=== PATIENT | male | born 1930 | race Caucasian/White ===

== ENCOUNTER 2017-08-23 09:06 | Emergency (ER) | payer OTHER ==
[~2017-08-23] VITALS: Ht 175.3 cm; Wt 65.8 kg
--- NOTE | 2017-08-23 11:24 | ED GENERAL ADULT ---
History of Present Illness General Chief Complaint: General Adult Stated Complaint: GROIN PAIN X 3 DAYS Source: patient, family Exam Limitations: no limitations Vital Signs & Intake/Output Vital Signs & Intake/Output Vital Signs Date Time Temp Pulse Resp B/P B/P Pulse O2 O2 Flow FiO2 Mean Ox Delivery Rate 08/23 1529 97.2 66 14 130/70 97 Room Air 08/23 1243 60 18 132/68 99 Room Air 08/23 1235 Room Air 08/23 0915 95.9 58 18 126/63 98 Room Air Room Air Allergies Coded Allergies: codeine (Intermediate, RASH/FLUSHED 08/23/17) Triage Note: PT TO ED WITH C/O RIGHT GROIN PAIN X 3 DAYS "IT'S LIKE A MUSCULAR SPASM, FIRST STARTED IN THE ARM, THAT WENT AWAY, BUT THE GROIN PAIN IS STILL THERE". PT DENIES FALL OR INJURY TO THE AREA. Triage Nurses Notes Reviewed? yes Onset: Gradual Duration: day(s): (3-4) Timing: no prior history Injury Environment: home Severity: mild, moderate Severity Numbers: 5 Modifying Factors: Improves With: immobilization. Worsens With: movement. HPI: Patient is an 87-year-old male presenting to the emergency department with chief of right thigh and right groin pain as well as left shoulder pain has been going on for the past 3-4 days. Denies any new injury but reports that he missed one step about 1 month ago and fell floored and since then he's had the shoulder pain but the cramping pain is new. Patient denying any dysuria urgency or frequency. No hematuria. Patient reports that he also has really bad spinal stenosis and has been having right lower back pain. Patient denies history quit the fall. No LOC. Denies neck pain. Patient has been taking regular strength Tylenol [id number] for the past 3 days without relief. Denies abdominal pain. No change in bowel or bladder habits. Denies any heavy lifting. No history of similar injury in the past. Denies any scrotalor testicular pain. (Katie ELAINE,Tory) Reconcile Medications Tramadol HCl 50 MG TABLET 1 TAB PO BIDP PRN SEVERE PAIN (Jason CHU,Saúl) Past History Travel History Traveled to [place] past 21 day No Medical History Any Pertinent Medical History? see below for history Neurological: NONE EENT: cataracts Cardiovascular: hypertension, hyperlipidemia, STENT 2008 Respiratory: NONE Gastrointestinal: diverticulitis Hepatic: NONE Renal: NONE Musculoskeletal: osteoarthritis Psychiatric: NONE Endocrine: NONE Blood Disorders: NONE Cancer(s): NONE PHARMACEUTICAL SALES SPECIALIST/Reproductive: NONE Surgical History Surgical History: non-contributory Psychosocial History What is your primary language Latvian Tobacco Use: Quit >30 days ago ETOH Use: occasional use Illicit Drug Use: denies illicit drug use Family History Hx Contributory? No (Tory Mejias) Review of Systems Review of Systems Constitutional: Reports: no symptoms. Comments Review of systems: See HPI, All other systems negative. Constitutional, no chills fever or weight loss HEENT: No visual changes no sore throat no congestion Cardiovascular: No chest pain ,palpitation , orthopnea or ankle swelling Skin, no jaundice no rashes Respiratory: No dyspnea cough sputum or hemoptysis GI: No nausea no vomiting : No dysuria No hematuria, no frequency or urgency Muscle skeletal: no neck pain, Neurologic: No numbness no confusion and no headaches Psych: No stress anxiety or depression,. Heme/endocrine: No bruising no bleeding no polyuria or polydipsia Immunology: No splenectomy or history of AIDS (Tory Mejias) Physical Exam Physical Exam General Appearance: well developed/nourished, no apparent distress, alert, awake , comfortable Comments: Well-developed well-nourished person in no acute distress HEENT: Atraumatic, normocephalic Neck: Supple, no C-spine tenderness, full range of motion. Back: Tenderness to palpation in the lumbar spinal muscles on the right side only. Spine noted to be kyphotic. No step-off deformities palpated over entire spine. Negative straight leg raise bilaterally. Cardiovascular: Regular rate and rhythms Respiratory: Chest nontender. No respiratory distress.breath sounds clear to auscultation bilaterally Abdomen: Soft, nontender nondistended, no appreciable organomegaly. Normal bowel sounds. No ascites, no rebound or guarding. Extremity: No edema, no calf tenderness to palpation, normal and equal pulses. Tender to palpation over the right thigh muscle, also elicited pain with right hip flexion, less pain with right hip adduction, mild pain with right hip abduction. Tender to palpation over the right groin area. Limited range of motion of left shoulder secondary to pain. Mild pain to palpation over the left acromioclavicular joint. No obvious deformities noted. Neuro: Alert oriented x3, motor sensory normal Skin: No appreciable rash on exposed skin, skin is warm and dry. Psych: Mood and affect is normal, memory and judgment is normal. Core Measures ACS in differential dx? No CVA/TIA Diagnosis: No Sepsis Present: No Sepsis Focused Exam Completed? No (Katie ELAINE,Tory) Progress Differential Diagnoses I considered the following diagnoses in my evaluation of the patient: Hip fracture, pelvis fracture, muscle strain, radicular pain, sciatica, shoulder fracture, shoulder dislocation, tendinitis Plan of Care: Orders Procedure Date/time Status URINALYSIS 08/23 1137 Complete Laboratory Tests 08/23/17 1330: Urine Color YEL, Urine Clarity CLEAR, Urine pH 7.0, Ur Specific [place] 1.015, Urine Protein NEG, Urine Ketones NEG, Urine Nitrite NEG, Urine Bilirubin NEG, Urine Urobilinogen 0.2, Ur Leukocyte Esterase NEG, Ur Microscopic SEDIMENT EXAMINED, Urine RBC 1-3, Urine Hemoglobin TRACE-INTACT H, Urine Glucose NEG 08/23/2017 11:37:02 AM patient declined pain medication on arrival. Patient will go for imaging. Pain elicited with movement and ambulation. Likely muscular or nerve related. 08/23/2017 3:16:08 PM patient has a right-sided superior rami pelvic fracture. Patient does well with rolling walker. Patient will have home physical therapy set up for him. Sent home with pain medication. Also will follow-up with orthopedics. Patient is nontoxic and compliant. d/w dr armas and he agrees with plan. family feels comfortable with pt being home. pt has his and son at home to help as needed. Diagnostic Imaging: Viewed by Me: CT Scan. Discussed w/RAD: CT Scan. Radiology Impression: PATIENT: ALISON STANTON JR PRESENT AGE: 87 PATIENT ACCOUNT NO: [id number] : [birth year] LOCATION: [facility] ORDERING PHYSICIAN: Tory ELAINE SERVICE DATE: 08/23/17-1122 EXAM TYPE: CAT - CT PELVIS WO IV CONTRAST EXAMINATION: CT PELVIS WITHOUT CONTRAST CLINICAL INFORMATION: Pain status post fall on right hip area. Rule out fracture. COMPARISON: CT scan of the lumbar spine dated 08/23/2017. TECHNIQUE: Helical scanning was performed with submillimeter collimation through the pelvis. Sagittal and coronal multiplanar 2-D reconstructions were obtained. DLP: 374.01 mGy-cm FINDINGS: PELVIS: Dense atherosclerotic calcification of the abdominal aorta is seen, which is normal in caliber, measuring 2.4 cm in maximal AP diameter. No significant pelvic adenopathy or free fluid collection is seen. Prostate gland is very heterogeneous and enlarged with coarse internal calcifications seen. Seminal vesicles bilaterally are also enlarged. Prostate gland impresses upon the bladder base. The bladder itself appears unremarkable. Included small and large bowel loops are decompressed and unremarkable only for moderate sigmoid colonic diverticulosis with no evidence of acute diverticulitis. No free fluid is seen. OSSEOUS STRUCTURES: Evaluation of the bones is difficult due to marked osteopenia, producing unremarkable lucency throughout the bony structures. There is a nondisplaced hairline fracture of the right superior pubic ramus near the pubic symphysis. The pubic symphysis remains intact. No other definite acute fracture is seen. Both hip joints are normally located within the acetabula and demonstrate mild degenerative change with joint space narrowing, mild spurring and cystic changes noted. Enthesopathic ossification along the greater trochanters and the iliac spines is seen. The sacroiliac joints bilaterally are intact. The bony sacrum appears intact. Advanced degenerative changes as seen in the lower lumbar spine. IMPRESSION: 1. Marked osteopenia, limiting assessment. Nondisplaced hairline right superior pubic ramus fracture is seen near the pubic symphysis. 2. No other acute fracture appreciated. 3. Mild degenerative changes in both hip joints and scattered enthesopathic changes noted in the hips and pelvis. 4. Moderate colonic diverticulosis. 5. Enlarged and heterogeneous prostate gland and seminal vesicles. 6. Dense atherosclerotic vascular disease. DICTATED BY: Amanda Hairston MD DATE/TIME DICTATED:08/23/171318 PREMIUM NOTE INTEREST CALCULATOR CLERK:FLORES DATE/ TIME TRANSCRIBED:08/23/171318 CONFIDENTIAL, DO NOT COPY WITHOUT APPROPRIATE AUTHORIZATION. <Electronically signed in Other Vendor System> SIGNED BY: Amanda Hairston MD 08/23/17 1333, PATIENT: ALISON STANTON JR PRESENT AGE: 87 PATIENT ACCOUNT NO: [id number] : [birth year] LOCATION: [facility] ORDERING PHYSICIAN: Tory ELAINE SERVICE DATE: 08/23/176 EXAM TYPE: CAT - CT LUMB SPINE WO IV CONTRAST EXAMINATION: CT LUMBAR SPINE WITHOUT CONTRAST CLINICAL INFORMATION: Pain status post fall. Assess for compression fracture. COMPARISON: MRI lumbar spine 03/04/2011. TECHNIQUE: Helical non- contrast CT images were obtained through the lumbar spine and 1.25 and 2.5 mm axial reconstructions were reviewed along with sagittal and coronal MPRs. DLP: 282.26 mGy-cm FINDINGS: There has been interval worsening of the levoscoliosis. There is a transitional vertebra at the lumbosacral junction with partial sacralization of L5 on the left. A pseudoarticulation is seen on the left at this level. The study redemonstrates the mild retrolisthesis of L1 on L2 and anterolisthesis of L3 on L4. There is marked narrowing of intervertebral disc height in the concavity of the scoliosis on the right at L3-L4 and there are sclerotic endplate changes with vacuum disc. Narrowing of intervertebral disc height is also demonstrated at multiple other levels. Vacuum discs are seen throughout the lumbar spine, sparing L5-S1. There are no acute compression fractures. Bone mineralization is diffusely decreased. The abdominal aorta is heavily calcified and is ectatic, extending into the bilateral iliac arteries. There are degenerative changes at the sacroiliac joints. There is sigmoid diverticulosis without evidence of active diverticulitis. SPINAL LEVELS: T12-L1: There is mild bilateral facet arthropathy. There is a right-sided disc protrusion extending into the right neural foramen. There is no definite nerve root impingement and there is no central stenosis. L1-L2: There is mild bilateral facet arthropathy with ligamenta flava hypertrophy. There is a diffuse disc bulge, distorting the ventral thecal sac. There is mild central stenosis. The neural foramina are patent. L2-L3: There is moderate bilateral facet arthropathy and ligamenta flava hypertrophy. There is a posterior disc protrusion extending into the neural foramina bilaterally without definite impingement on the exiting L2 nerve roots. There is mild to moderate central stenosis. L3-L4: There is severe right and moderate to severe left facet arthropathy with ligamenta flava hypertrophy. There is a posterior disc osteophyte complex extending into the right greater than left neural foramina, and there may be impingement on the exiting right L3 nerve root. There is moderate central stenosis. L4-L5: There is moderate to severe bilateral facet arthropathy and ligamenta flava hypertrophy. There is a broad-based posterior disc protrusion extending into the neural foramina bilaterally. There is narrowing of the subarticular recesses bilaterally and there is moderate to severe central stenosis. L5-S1: There is bilateral facet arthropathy. There is a right disc osteophyte complex narrowing the right neural foramen and there may be impingement on the exiting L5 nerve root. There is mild central stenosis, there is narrowing of the bilateral subarticular recesses. IMPRESSION: 1. There are no acute fractures or subluxations. 2. There is a levoscoliosis, there is an anterolisthesis of L3 on L4 and there is partial sacralization of L5 in the left. 3. There is multilevel spondylosis as described above, which appears most severe at L3-L4 and L4-L5. DICTATED BY: Andre Campbell MD DATE/TIME DICTATED:08/23 PREMIUM NOTE INTEREST CALCULATOR CLERK:FLORES DATE/TIME TRANSCRIBED:08/23/171237 CONFIDENTIAL, DO NOT COPY WITHOUT APPROPRIATE AUTHORIZATION. <Electronically signed in Other Vendor System> SIGNED BY: Andre Campbell MD 08/23/17 1257, PATIENT: ALISON STANTON JR PRESENT AGE: 87 PATIENT ACCOUNT NO: [id number] : [birth year] LOCATION: [facility] ORDERING PHYSICIAN: Toyr ELAINE SERVICE DATE: 08/23/17 EXAM TYPE: RAD - XRY-SHOULDER COMPLETE-LEFT EXAMINATION: XR SHOULDER, LEFT CLINICAL INFORMATION: Trauma. Pain. COMPARISON: None TECHNIQUE: 5 views of the left shoulder. FINDINGS: The bones and soft tissues are normal. No fracture. Glenohumeral and acromioclavicular alignment is anatomic with normal joint space. There is chondrocalcinosis of the left AC joint. 2 tiny ossified bodies are noted in the inferior to the glenoid process and probably reside within the axillary bursa. IMPRESSION: 1. No fracture or dislocation. 2. Chondrocalcinosis of the left AC joint. 3. Question tiny loose bodies in the axillary bursa. DICTATED BY: Robert Schwartz MD DATE/ TIME DICTATED:08/23/171244 PREMIUM NOTE INTEREST CALCULATOR CLERK:RAD.ANTON DATE/TIME TRANSCRIBED: 08/23/17 / 1245 CONFIDENTIAL, DO NOT COPY WITHOUT APPROPRIATE AUTHORIZATION. < Electronically signed in Other Vendor System> SIGNED BY: Robert Schwartz MD 08/23/17 1258 Initial ED EKG: none (Tory Mejias) Departure Departure Time of Disposition: 1507 Disposition: HOME OR SELF CARE Condition: Stable Clinical Impression Primary Impression: Pelvic fracture Qualifiers: Encounter type: initial encounter Pelvic bone location: other part of pelvis Fracture type: closed Qualified Code: S32.89XA - Fracture of other parts of pelvis, initial encounter for closed fracture Referrals: Christoph CHU,Nicko García MD,Beto Peñaloza (PCP/Family) Additional Instructions: Follow-up with orthopedics, call to make an appointment. Ice affected area. Elevate extremities. For severe pain take Ultram. For [id number] pain use regular strength Tylenol [id number] as directed. Physical therapy will be set up for you. Someone will be out to evaluate you. Use the walker as directed. No driving for at least 3 weeks to help with healing and pain control. Departure Forms: Customer Survey General Discharge Information Prescriptions: Current Visit Scripts Tramadol HCl 1 TAB PO BIDP PRN SEVERE PAIN #10 TAB (Tory Mejias) PA/SURGICAL SUPPLIES STERILIZER Co-Sign Statement Statement: ED Attending supervision documentation- x I saw and evaluated the patient. I have also reviewed all the pertinent lab results and diagnostic results. I agree with the findings and the plan of care as documented in the PA's/SURGICAL SUPPLIES STERILIZER's documentation. [] I have reviewed the ED Record and agree with the PA's/SURGICAL SUPPLIES STERILIZER's documentation. [] Additions or exceptions (if any) to the PAs/SURGICAL SUPPLIES STERILIZER's note and plan are summarized below: [] (Jason CHU,Saúl) Critical Care Note Critical Care Note Critical Care Time: non-applicable (Tory Mejias)
--- NOTE | 2017-08-23 12:52 | RADIOLOGY REPORT ---
EXAMINATION: XR SHOULDER, LEFT CLINICAL INFORMATION: Trauma. Pain. COMPARISON: None TECHNIQUE: 5 views of the left shoulder. FINDINGS: The bones and soft tissues are normal. No fracture. Glenohumeral and acromioclavicular alignment is anatomic with normal joint space. There is chondrocalcinosis of the left AC joint. 2 tiny ossified bodies are noted in the inferior to the glenoid process and probably reside within the axillary bursa. IMPRESSION: 1. No fracture or dislocation. 2. Chondrocalcinosis of the left AC joint. 3. Question tiny loose bodies in the axillary bursa.
--- NOTE | 2017-08-23 12:57 | CT SCAN REPORT ---
EXAMINATION: CT LUMBAR SPINE WITHOUT CONTRAST CLINICAL INFORMATION: Pain status post fall. Assess for compression fracture. COMPARISON: MRI lumbar spine 03/04/2011. TECHNIQUE: Helical non-contrast CT images were obtained through the lumbar spine and 1.25 and 2.5 mm axial reconstructions were reviewed along with sagittal and coronal MPRs. DLP: 282.26 mGy-cm FINDINGS: There has been interval worsening of the levoscoliosis. There is a transitional vertebra at the lumbosacral junction with partial sacralization of L5 on the left. A pseudoarticulation is seen on the left at this level. The study redemonstrates the mild retrolisthesis of L1 on L2 and anterolisthesis of L3 on L4. There is marked narrowing of intervertebral disc height in the concavity of the scoliosis on the right at L3-L4 and there are sclerotic endplate changes with vacuum disc. Narrowing of intervertebral disc height is also demonstrated at multiple other levels. Vacuum discs are seen throughout the lumbar spine, sparing L5-S1. There are no acute compression fractures. Bone mineralization is diffusely decreased. The abdominal aorta is heavily calcified and is ectatic, extending into the bilateral iliac arteries. There are degenerative changes at the sacroiliac joints. There is sigmoid diverticulosis without evidence of active diverticulitis. SPINAL LEVELS: T12-L1: There is mild bilateral facet arthropathy. There is a right-sided disc protrusion extending into the right neural foramen. There is no definite nerve root impingement and there is no central stenosis. L1-L2: There is mild bilateral facet arthropathy with ligamenta flava hypertrophy. There is a diffuse disc bulge, distorting the ventral thecal sac. There is mild central stenosis. The neural foramina are patent. L2-L3: There is moderate bilateral facet arthropathy and ligamenta flava hypertrophy. There is a posterior disc protrusion extending into the neural foramina bilaterally without definite impingement on the exiting L2 nerve roots. There is mild to moderate central stenosis. L3-L4: There is severe right and moderate to severe left facet arthropathy with ligamenta flava hypertrophy. There is a posterior disc osteophyte complex extending into the right greater than left neural foramina, and there may be impingement on the exiting right L3 nerve root. There is moderate central stenosis. L4-L5: There is moderate to severe bilateral facet arthropathy and ligamenta flava hypertrophy. There is a broad-based posterior disc protrusion extending into the neural foramina bilaterally. There is narrowing of the subarticular recesses bilaterally and there is moderate to severe central stenosis. L5-S1: There is bilateral facet arthropathy. There is a right disc osteophyte complex narrowing the right neural foramen and there may be impingement on the exiting L5 nerve root. There is mild central stenosis, there is narrowing of the bilateral subarticular recesses. IMPRESSION: 1. There are no acute fractures or subluxations. 2. There is a levoscoliosis, there is an anterolisthesis of L3 on L4 and there is partial sacralization of L5 in the left. 3. There is multilevel spondylosis as described above, which appears most severe at L3-L4 and L4-L5.
--- NOTE | 2017-08-23 13:33 | CT SCAN REPORT ---
EXAMINATION: CT PELVIS WITHOUT CONTRAST CLINICAL INFORMATION: Pain status post fall on right hip area. Rule out fracture. COMPARISON: CT scan of the lumbar spine dated 08/23/2017. TECHNIQUE: Helical scanning was performed with submillimeter collimation through the pelvis. Sagittal and coronal multiplanar 2-D reconstructions were obtained. DLP: 374.01 mGy-cm FINDINGS: PELVIS: Dense atherosclerotic calcification of the abdominal aorta is seen, which is normal in caliber, measuring 2.4 cm in maximal AP diameter. No significant pelvic adenopathy or free fluid collection is seen. Prostate gland is very heterogeneous and enlarged with coarse internal calcifications seen. Seminal vesicles bilaterally are also enlarged. Prostate gland impresses upon the bladder base. The bladder itself appears unremarkable. Included small and large bowel loops are decompressed and unremarkable only for moderate sigmoid colonic diverticulosis with no evidence of acute diverticulitis. No free fluid is seen. OSSEOUS STRUCTURES: Evaluation of the bones is difficult due to marked osteopenia, producing unremarkable lucency throughout the bony structures. There is a nondisplaced hairline fracture of the right superior pubic ramus near the pubic symphysis. The pubic symphysis remains intact. No other definite acute fracture is seen. Both hip joints are normally located within the acetabula and demonstrate mild degenerative change with joint space narrowing, mild spurring and cystic changes noted. Enthesopathic ossification along the greater trochanters and the iliac spines is seen. The sacroiliac joints bilaterally are intact. The bony sacrum appears intact. Advanced degenerative changes as seen in the lower lumbar spine. IMPRESSION: 1. Marked osteopenia, limiting assessment. Nondisplaced hairline right superior pubic ramus fracture is seen near the pubic symphysis. 2. No other acute fracture appreciated. 3. Mild degenerative changes in both hip joints and scattered enthesopathic changes noted in the hips and pelvis. 4. Moderate colonic diverticulosis. 5. Enlarged and heterogeneous prostate gland and seminal vesicles. 6. Dense atherosclerotic vascular disease.
[2017-08-23] MEDS ORDERED: TRAMADOL HCL50 M1 PO (15:14)
[2017-08-23 15:29] VITALS: BP 130/70
== END 2017-08-23 15:20 ==
LOC: ERH 09:06
DX: M84.454A Pathological fracture, pelvis, initial encounter for fracture (principal); M25.512 Pain in left shoulder; M54.5 Low back pain
CPT/HCPCS: 73030-LT; 81001